=== PATIENT | male | born 1955 | race African-American/Black ===

== ENCOUNTER 2019-02-07 16:59 | Inpatient (IN) | payer OTHER ==
[~2019-02-07] VITALS: Ht 175.3 cm; Wt 94.7 kg
[2019-02-07] VITALS (8 sets, daily range): BP systolic 100–149; BP diastolic 77–113; PULSE 129–169; RESP 19–30; Ht 175.3 cm; Wt 94.7 kg
[~2019-02-07 16:59] MED LIST: ADENOSINE 3 MG/ML SYRINGE IV ONE; CARV6.25 PO; GABA300C16 PO; LISI40TA3 PO; TAMS-14 PO
[2019-02-07] MEDS ORDERED: SOD CHLORIDE 0.9% 1,000 ML IV STA (17:20)
[2019-02-07] MEDS ORDERED: ASPIRIN 81 MG TAB PO STA (17:20)
[2019-02-07] MEDS ORDERED: ADENOSINE 6 MG INJ IV ONE (17:30)
[2019-02-07] MEDS ORDERED: DILTIAZEM 25 MG INJ IV ONE ×2 (17:30→19:00)
[2019-02-07] MEDS ORDERED: DILTIAZEM-D5W 125MG/125ML DRIP 125 ML IV SCH (19:00)
[2019-02-07] MEDS ORDERED: ONDANSETRON 4 MG INJ IV PRN ×2 (20:00→21:00)
[2019-02-07] MEDS ORDERED: ACETAMINOPHEN 325 MG TAB PO PRN ×2 (20:00→21:00)
[2019-02-07] MEDS ORDERED: SOD CHLORIDE 0.9% 1,000 ML IV SCH (20:57)
[2019-02-07] MEDS ORDERED: DIGOXIN 500 MCG INJ IV ONE (21:00)
[2019-02-07] MEDS ORDERED: LORAZEPAM 2 MG INJ IV ONE ×2 (21:00)
[2019-02-07] MEDS ORDERED: NACL 0.9% 3 ML SYG IV SCH (21:00)
[2019-02-07] MEDS ORDERED: LORAZEPAM 2 MG INJ IV PRN (21:00)
[2019-02-07] MEDS ORDERED: NITROGLYCERIN (SL) 0.4 MG TAB SL PRN (21:00)
[2019-02-07] MEDS: CHLORDIAZEPOXIDE 25 MG CAP PO SCH (21:21)
[2019-02-07] MEDS ORDERED: SOD CHLORIDE 0.9% 1,000 ML IV ONE (21:30)
[2019-02-07] MEDS ORDERED: AMIODARONE 900 MG in DEXTROSE 5% 482 ML IV SCH (23:00)
[2019-02-07] MEDS ORDERED: METOPROLOL 5 MG INJ IV ONE (23:00)
[2019-02-07] MEDS ORDERED: AMIODARONE 150MG/D5W BOLUS 100 ML IV ONE (23:00)
[2019-02-08] VITALS (34 sets, daily range): BP systolic 124–178; BP diastolic 60–143; PULSE 59–87; RESP 14–28
[2019-02-08] MEDS: CHLORDIAZEPOXIDE 25 MG CAP PO SCH ×3 (08:23→20:36)
[2019-02-08] MEDS ORDERED: ASPIRIN (EC) 81 MG TAB PO SCH (09:00)
[2019-02-08] MEDS ORDERED: MULTIVITAMINS 10 ML, THIAMINE 100 MG, FOLIC ACID 1 MG in SOD CHLORIDE 0.9% 1,000 ML IVPB SCH (09:00)
[2019-02-08] MEDS ORDERED: LORAZEPAM 2 MG INJ IV PRN (11:30)
[2019-02-08] MEDS: HEPARIN 5,000 UNIT/1 ML VIAL SC SCH ×2 (12:15→20:41)
[2019-02-08] MEDS ORDERED: POTASSIUM CHLORIDE (SR) 20 MEQ TAB PO STA (17:09)
[2019-02-08] MEDS ORDERED: MAGNESIUM SULFATE 3 GM in DEXTROSE 5% 100 ML IVPB ONE (17:30)
[2019-02-08] MEDS ORDERED: TAMSULOSIN (SR) 0.4 MG CAP PO SCH (21:00)
[2019-02-08] MEDS ORDERED: AMIODARONE 200 MG TAB PO SCH (21:00)
== END 2019-02-08 22:20 | disposition short-term general hospital (02) | DRG 309 ==
LOC: E/R 16:59 → ICU 19:33 → CANRESERV 19:55 → EDBEDREQSVC 20:08
PROVIDERS: ADMIT Internal Medicine; ATTEND Hospitalist
DX: I48.91 Unspecified atrial fibrillation (principal); F10.239 Alcohol dependence with withdrawal, unspecified; N17.9 Acute kidney failure, unspecified; Y90.0 Blood alcohol level of less than 20 mg/100 ml; E87.6 Hypokalemia; N40.0 Benign prostatic hyperplasia without lower urinary tract symptoms; I10 Essential (primary) hypertension; Z87.891 Personal history of nicotine dependence; I25.10 Atherosclerotic heart disease of native coronary artery without angina pectoris; R07.9 Chest pain, unspecified
CPT/HCPCS: 36415; 71045; 80048; 80053; 80061; 80307; 82550; 82553; 83036; 83735; 84443; 84484; 85025; 85610; 85730; 93005; 93306; 96365; 96375; 96376; J0282; J1644; J2060; J3411; J3475; J7030; J7060